=== PATIENT | female | born 1960 | race Caucasian/White ===

== ENCOUNTER → 2017-04-27 | Outpatient (CLI) | payer OTHER | LOC: BMCIMAGING 10:28 → EDSTATUS 10:37 → BMCIMAGING 10:40 | PROVIDERS: ATTEND Internal Medicine | DX: J98.4 Other disorders of lung (principal); R00.0 Tachycardia, unspecified; R49.0 Dysphonia ==

== ENCOUNTER → 2017-04-27 | Outpatient (CLI) | payer OTHER ==
[~2017-04-27] MED LIST: IOPAMIDOL (ISOVUE-300) 100 ML BTL ONE
== END ==
LOC: FIMAGING 13:13
PROVIDERS: ATTEND Internal Medicine
DX: R22.2 Localized swelling, mass and lump, trunk (principal); I31.3 Pericardial effusion (noninflammatory); J98.11 Atelectasis; D30.02 Benign neoplasm of left kidney; M43.12 Spondylolisthesis, cervical region; M47.892 Other spondylosis, cervical region; M48.02 Spinal stenosis, cervical region; M99.71 Connective tissue and disc stenosis of intervertebral foramina of cervical region; R00.0 Tachycardia, unspecified
CPT/HCPCS: Q9967

== ENCOUNTER 2017-05-06 09:55 | Day surgery (SDC) | payer OTHER ==
[2017-05-06] MEDS ORDERED: NALOXONE HCL 0.4 MG/ML INJ ONE (10:15)
[2017-05-06] MEDS ORDERED: FLUMAZENIL 0.5 MG/5 ML MDV IVP ONE (10:15)
[2017-05-06] MEDS ORDERED: MIDAZOLAM 2 MG/2 ML VIAL ONE (10:16)
[2017-05-06] MEDS ORDERED: fentaNYL 100 MCG/2 ML INJ ONE (10:16)
[2017-05-06] MEDS ORDERED: HEPARIN 10,000 UNIT/10 ML MDV IVP PRN (10:29)
[2017-05-06] MEDS ORDERED: GLUCAGON HCL 1 MG VIAL IVP PRN (10:29)
[2017-05-06] MEDS ORDERED: ALTEPLASE 2 MG VIAL IVP PRN (10:29)
[2017-05-06] MEDS ORDERED: FLUMAZENIL 0.5 MG/5 ML MDV IVP PRN (10:29)
[2017-05-06] MEDS ORDERED: PROTAMINE SULFATE 50 MG/5 ML VIAL IVP PRN (10:29)
[2017-05-06] MEDS ORDERED: fentaNYL 100 MCG/2 ML INJ IVP PRN (10:29)
[2017-05-06] MEDS ORDERED: MEPERIDINE 25 MG/ML SYR IVP PRN (10:29)
[2017-05-06] MEDS ORDERED: MIDAZOLAM 2 MG/2 ML VIAL IVP PRN (10:29)
[2017-05-06] MEDS ORDERED: NALOXONE HCL 0.4 MG/ML INJ IVP PRN (10:29)
[2017-05-06] MEDS ORDERED: NS 1,000 ML IV SCH (10:30)
[2017-05-06 10:43] VITALS: PULSE 87; TEMP 208
--- NOTE | 2017-05-06 11:06 | PDGENHP ---
History & Physical Chief Complaint: CHEST PRESSURE, LARYNGITIS, SWOLLEN LT FACE History of Present Illness: PATIENT HAD THE ABOVE PRESENTIG SYMPTOMS. HAS HAD WORK UP WITH ENT, GI. EVENTUALLY A CHEST X RAY FROM PRIMARY CARE PHSICIAN SHOWED A LARGE MEDIASTINAL MASS. CT CONFIRMED MASS. PATIENT IS HERE FOR CT GUIDED BIOPSY. Pertinent Past, Social, Family History: NO SMOKING HISTORY. 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 Relevant Physical Exam: NOT IN ANY DISTRESS. MILD LARYNGITIS. Cardiorespiratory Assessment: RRR, CTA
--- NOTE | 2017-05-06 11:11 | PDPROPOC ---
Sedation Plan of Care Sedation Plan of Care: vital signs stable, mental status noted, patient educated of risks, benefits, alternatives, patient can tolerate sedation ASA Classification: ASA 2 Planned drugs: fentanyl, midazolam Mallampati Score: Class 1 Mallampati Reference Image: Patient passed 3-3-2 rule?: Yes
[2017-05-06] MEDS ORDERED: ONDANSETRON 4 MG/2 ML VIAL ONE (11:16)
[2017-05-06] MEDS ORDERED: ONDANSETRON 4 MG/2 ML VIAL IVP PRN (12:05)
[2017-05-06] MEDS ORDERED: ACETAMINOPHEN 325 MG TAB PO PRN (12:05)
--- NOTE | 2017-05-06 12:09 | PDRADPN ---
Radiology Procedure Note Date of Procedure: 05/06/17 Radiologist: Leatha Go Anesthesia: IV Sedation (fentanyl and versed) Pre-op Diagnosis: mediastinal mass Post-op Diagnosis: same Indication: needs diagnosis Procedure: CT guided mass biopsy Finding(s): 6 cores obtained, sent in formalin and hanks. Inf/Abcess present in the surg proc area at time of surgery?: No EBL: Minimal Complications: none Specimen(s): cores
[2017-05-06 14:30] VITALS: RESP 16
[2017-05-06 14:37] VITALS: BP 127/85; O2SAT 98
[2017-05-09 14:23] LABS: FINAL DIAGNOSIS See Comments; MICROSCOPIC DESCRIPTION See Comments
== END 2017-05-06 13:20 | disposition home or self-care (01) ==
LOC: FIMAGING 09:55
PROVIDERS: ATTEND Radiology Diagnostic Radiology
PROC: 0WBC3ZX Excision of Mediastinum, Percutaneous Approach, Diagnostic (ICD-10-PCS; principal; 2017-05-06 12:14)
DX: C83.32 Diffuse large B-cell lymphoma, intrathoracic lymph nodes (principal); E03.9 Hypothyroidism, unspecified
CPT/HCPCS: 88184-90; 88185-91; J2250; J2310; J2405; J3010

== ENCOUNTER → 2017-05-13 | Outpatient (CLI) | payer OTHER | LOC: FIMAGING 14:13 | PROVIDERS: ATTEND Physician Assistant Surgical | DX: C85.90 Non-Hodgkin lymphoma, unspecified, unspecified site (principal) ==

== ENCOUNTER 2017-05-27 08:52 | Inpatient (IN) | payer OTHER ==
[2017-05-27] MEDS ORDERED: ACETAMINOPHEN 325 MG TAB PO PRN (09:35)
[2017-05-27] MEDS ORDERED: ZOLPIDEM TARTRATE 5 MG TAB PO PRN (09:35)
[2017-05-27] MEDS ORDERED: ONDANSETRON 4 MG/2 ML VIAL IVP PRN (09:35)
[2017-05-27] MEDS ORDERED: VANCOMYCIN HCL/NORMAL SALINE 250 ML IV ONE (10:30)
[2017-05-27] MEDS: traMADol 50 MG TAB PO PRN ×2 (10:40→20:42)
[2017-05-27] MEDS ORDERED: LIDOCAINE/PRILOCAINE 1 EACH CRTUBE TP SCH (11:15)
[2017-05-27 11:47] LABS: HEMATOCRIT 36.8 % (38.0-47.0); HEMOGLOBIN 13.4 g/dL (12.6-16.3); MEAN CELL HEMOGLOBIN 32.6 pg (27.9-34.1); MEAN CELL HEMOGLOBIN CONCENTR. 36.4 g/dL (32.4-36.7); MEAN CELL VOLUME 89.5 fL (81.5-99.8); RED BLOOD CELL COUNT 4.11 10^6/uL (4.18-5.33); RED CELL DISTRIBUTION WIDTH 11.8 % (11.5-15.2)
[2017-05-27 12:20] LABS: ALANINE AMINOTRANSFERASE 43 IU/L (9-52); ALBUMIN 3.8 g/dL (3.5-5.0); ALKALINE PHOSPHATASE 84 IU/L (38-126); ANION GAP 13 mEq/L (8-16); ASPARTATE AMINOTRANSFERASE 34 IU/L (14-46); BILIRUBIN,TOTAL 0.3 mg/dL (0.1-1.4); CALCIUM 9.2 mg/dL (8.5-10.4); CARBON DIOXIDE 26 mEq/l (22-31); CHLORIDE 103 mEq/L (97-110); CREATININE 0.6 mg/dL (0.6-1.0); GLOMERULAR FILTRATION RATE > 60; GLUCOSE 104 mg/dL (70-100); POTASSIUM 4.1 mEq/L (3.5-5.2); SODIUM 142 mEq/L (134-144); TOTAL PROTEIN 6.1 g/dL (6.3-8.2)
[2017-05-27] MEDS ORDERED: CYCLOBENZAPRINE 10 MG TAB PO PRN (15:12)
[2017-05-27] MEDS ORDERED: oxyCODONE IR 5 MG TAB PO PRN (15:13)
--- NOTE | 2017-05-27 18:01 | GHP ---
[f rep st] HISTORY AND PHYSICAL DATE OF ADMISSION: 05/27/2017 CHIEF COMPLAINT: Possible infected port. HISTORY OF PRESENT ILLNESS: The patient is a 56-year-old female who was recently diagnosed with non-Hodgkin's lymphoma that had a port placed approximately 3 weeks ago. She says that in the last 2 days she began to feel feverish, achy and had some back pain. She notes that her port site looked a little bit red and swollen so she called [facility]. She was directly admitted for evaluation and IV antibiotics. She denies any nausea, vomiting, or diarrhea. 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 Bauman. Postmenopausal, on HRT. PAST SURGICAL HISTORY: Right appendectomy, right upper chest port placement. SOCIAL HISTORY: She denies alcohol, tobacco, or drug use. She is and has 3 children. 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 FAMILY HISTORY: mom of pancreatic cancer at the age of 58. REVIEW OF SYSTEMS: 10-point review of systems was done and negative except as noted above. PHYSICAL EXAMINATION: VITAL SIGNS: Blood pressure is 110/76. Her heart rate is 112. She is 91% on room air and her temperature is 98.6. GENERAL: She is a very pleasant, thin female in no apparent distress, nontoxic. HEENT: Normocephalic, atraumatic. Extraocular movements are intact. Oropharynx has moist mucous membranes. No obvious lesions. NECK: Supple. No lymphadenopathy or thyromegaly appreciated. CARDIOVASCULAR: Tachy but regular rate with no murmur, rub, or gallop. LUNGS: Clear to auscultation bilaterally. ABDOMEN: Soft. Normoactive bowel sounds, nontender, nondistended. No hepatosplenomegaly appreciated. and BREAST exam were deferred. EXTREMITY: No cyanosis, clubbing, or edema. NEURO: Grossly intact. SKIN: She has a port just inferior to her right clavicle that has overlying erythema and swelling with an area of fluctuance centrally. She has a left peripheral IV that was recently placed. LABORATORY DATA: Sodium 142, potassium 4.1, chloride 103, CO2 of 26, BUN of 9, creatinine 0.6, glucose 104, calcium 9.2, total bilirubin is 0.3, AST of 34, ALT of 43, alkaline phosphatase of 84, total protein 6.1, albumin of 3.8, white blood cell count of 4.25, hemoglobin 13.4, hematocrit is 36.8, and platelet count is 155. Blood cultures are done and pending. No radiology studies are done. ASSESSMENT/PLAN: 1. Infected port site.Started on IV vanco. Blood cultures were done. General Surgery and Oncology have been asked to see the patient. For now, plan is to observe the site in hopes of salvaging this port site. However, if she is not responding to intravenous antibiotics, likely this will need to be removed and then another placed at some point. Care plan discussed with Dr. Martinez and Dr. Warren. 2. Non-Hodgkin lymphoma. She is currently undergoing chemotherapy. Scheduling of further chemotherapy sessions per Oncology. 3. Hypothyroidism. Home medication will be continued. 4. Deep venous thrombosis prophylaxis. Lovenox. 5. PCPs: Dr. Estela Melvin, Dr. Mau Bauman. 6. Full code. DISPOSITION: Likely greater than 2 midnights due to possible need for surgical intervention and need for IV antibiotics and evaluation. Greater than 30 minutes spent in reviewing chart, coordinating care. /[id number]/MODL MTDD
--- NOTE | 2017-05-27 19:15 | PDMN ---
Medical Necessity Medical necessity: C/M review: patient meets INPT criteria under [facility] M-515 Infection, thrombosis or other complication of intravenous device; Acute and persistent likely port infection requiring planned Oncology consult, General Surgery consult ongoing IV Vancomycin Q 12 hrs, comorbid recently diagnosed non- Hodgkin's lymphoma, port placement approximately 3 weeks ago, patient reports feeling feverish, redness, swelling at port site started two days prior to this admission, port has been used for IV chemo. MD anticipated > 2 MN LOS for ongoing med nec for eval and TX of above.
--- NOTE | 2017-05-27 20:36 | GCON ---
[f rep st] CONSULTATION MEDICAL ONCOLOGY FOLLOWUP CONSULTATION DATE OF CONSULTATION: 05/27/2017 REFERRING PHYSICIAN: Aminah Mccracken MD REASON FOR CONSULTATION: Ongoing management of port infection and primary mediastinal B-cell lymphom a. RECOMMENDATIONS: 1. Agree with IV antibiotics at this time as you are doing. 2. Check cultures when they are available. 3. I would try to treat her port infection in place at this time. If the infection fails to clear o r if it recurs or if she has positive blood cultures, I would recommend that the port be removed. 4. The patient's next chemotherapy is due on the June. That will be cycle #2 of R-EP [facility]. ASSESSMENT: This 56-year-old white female was recently diagnosed with a primary mediastinal B-cell l ymphoma. She initially had symptoms in the summer of 2016. She had swelling in her jaw and then a g lobus sensation in her throat when swallowing. Approximately 2 months ago, she developed hoarseness. Evaluation revealed the above-mentioned primary mediastinal B-cell lymphoma. The patient was start ed on treatment with capital R-EPOCH chemotherapy on the May. Treatment is with cu rative intent. She tolerated her first cycle fairly well. The patient called me last evening with complaints of some minor redness but no fever in her port. S he was seen in the office this morning for further evaluation. Of note, her total white count yester day was 1.36. The patient did receive Neulasta. Her granulocytes yesterday were 190. Today, her to jose white blood cell count on admission to the hospital was normal at 4.25. Her platelets were 155,0 00 and her hemoglobin was 13.4. She was not febrile. Because of the erythema of in and around her p ort, she was admitted for further evaluation and treatment. Her blood cultures are currently pending . We will attempt to treat her port in place without removal if possible. However, if she has positive blood cultures or fails to clear the infection, the port will need to be removed. She has been eval uated by Dr. Velazquez, who is following along with this. Her next chemotherapy is due on the Jun. HISTORY OF PRESENT ILLNESS: Please see assessment. PAST MEDICAL HISTORY: Remarkable for incidentally noted carcinoid tumor after appendectomy in approx imately 2000. She has had nonmelanoma skin cancer. She has had hypothyroidism. FAMILY HISTORY: Remarkable for her mother dying of pancreatic cancer at age 58. SOCIAL HISTORY: She does not smoke cigarettes. She drinks alcohol rarely. 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 REVIEW OF SYSTEMS: Remarkable for tenderness associated with her port in her right chest. She, at t his time, has not as of yet had hair loss. She has no nausea, vomiting, or mouth sores. She reports no nausea or vomiting. She reports no change in her bowel habits. She has had no lower extremity e justine. PHYSICAL EXAMINATION: GENERAL: Shows a well-developed, articulate woman sitting up in bed in no acu te distress. HEENT: Exam is unremarkable. NECK: Shows some minor venous distention bilaterally. LUNGS: Clear to auscultation anteriorly and posteriorly. CARDIAC: Am shows a regular tachycardic r hythm. ABDOMEN: Exam shows active bowel sounds. No hepatosplenomegaly. No tenderness. LOWER EXTR EMITIES: Show no edema. CHEST: Her right anterior chest wall port shows some erythema and ecchymos is but no drainage and no significant tenderness. There is no tenderness along the track of the cath eter. Thank you very much for allowing us to participate in this pleasant woman's ongoing oncologic care. We will look forward to assisting with her management. /[id number]/MODL
[2017-05-27] MEDS: ACYCLOVIR 400 MG TAB PO SCH (20:42)
[2017-05-27] MEDS: ALLOPURINOL 300 MG TAB PO SCH (20:42)
--- NOTE | 2017-05-27 21:33 | SOAPPROG ---
SOAP Progress Note Assessment/Plan: Assessment: s/p port presented with malaise and fever Slight erythema around port Discussed with Dr. Warren. Will monitor Plan: 05/27/17 21:33 Objective: Vital Signs Temp Pulse Resp BP Pulse Ox 37.0 C 112 H 16 110/76 91 L 05/27/17 15:27 05/27/17 15:27 05/27/17 15:27 05/27/17 15:27 05/27/17 15:27 Laboratory Results 05/27/17 11:40 05/27/17 11:40 05/26/17 05/27/17 05/28/17 05:59 05:59 05:59 Intake Total 2250 Balance 2250 ICD10 Worksheet Patient Problems: Problems Problem Status Onset Mediastinal mass Acute
[2017-05-27] MEDS: VANCOMYCIN HCL/NORMAL SALINE 250 ML IV SCH (23:00)
[2017-05-28 04:06] LABS: ABSOLUTE NRBC COUNT 0.18 10^3/uL (0-0.01); ADD DIFF? YES; ATYPICAL LYMPHOCYTE FLAG 0 (0-99); FRAGMENT RBC FLAG 0 (0-99); HEMATOCRIT 35.6 % (38.0-47.0); HEMOGLOBIN 12.5 g/dL (12.6-16.3); LIPEMIA HEMOLYSIS FLAG 90 (0-99); MEAN CELL HEMOGLOBIN 31.3 pg (27.9-34.1); MEAN CELL HEMOGLOBIN CONCENTR. 35.1 g/dL (32.4-36.7); MEAN CELL VOLUME 89.2 fL (81.5-99.8); MEAN PLATELET VOLUME 9.8 fL (8.7-11.7); PLATELET CLUMPS FLAG 0 (0-99); PLATELET COUNT 159 10^3/uL (150-400); RED BLOOD CELL COUNT 3.99 10^6/uL (4.18-5.33); RED CELL DISTRIBUTION WIDTH 11.9 % (11.5-15.2)
[2017-05-28 04:11] LABS: ADD MORPH? NO; ADD SCAN? NO; LEFT SHIFT FLG 300 (0-99); NRBC-AUTO% 1.3 % (0.0-0.2)
[2017-05-28 04:17] LABS: ANION GAP 11 mEq/L (8-16); CARBON DIOXIDE 26 mEq/l (22-31); CHLORIDE 99 mEq/L (97-110); CREATININE 0.7 mg/dL (0.6-1.0); GLOMERULAR FILTRATION RATE > 60; GLUCOSE 84 mg/dL (70-100); POTASSIUM 4.7 mEq/L (3.5-5.2); SODIUM 136 mEq/L (134-144)
[2017-05-28 04:52] LABS: MICROCYTES 2+; PLATELET ESTIMATE ADEQUATE (ADEQ); POLYCHROMASIA 1+
[2017-05-28] MEDS: LEVOTHYROXINE 88 MCG TAB PO SCH (06:02)
[2017-05-28 07:51] VITALS: RESP 16
[2017-05-28] MEDS ORDERED: ENOXAPARIN 40 MG/0.4 ML SYR SC SCH (09:00)
--- NOTE | 2017-05-28 09:04 | SOAPPROG ---
SOAP Progress Note Assessment/Plan: Assessment: s/p port erythema stable around port. Getting abx Will remove if worsens Plan: 05/27/17 21:33 05/28/17 09:04 Objective: Vital Signs Temp Pulse Resp BP Pulse Ox 36.6 C 97 16 123/83 H 93 05/28/17 07:49 05/28/17 07:49 05/28/17 07:49 05/28/17 07:49 05/28/17 07:49 Laboratory Results 05/28/17 03:20 05/28/17 03:20 05/27/17 05/28/17 05/29/17 05:59 05:59 05:59 Intake Total 2600 Balance 2600 ICD10 Worksheet Patient Problems: Problems Problem Status Onset Mediastinal mass Acute
[2017-05-28] MEDS: CHOLECALCIFEROL VIT D3 1,000 UNITS TAB PO SCH (09:39)
[2017-05-28] MEDS: ACYCLOVIR 400 MG TAB PO SCH ×2 (09:39→21:04)
[2017-05-28] MEDS: VANCOMYCIN HCL/NORMAL SALINE 250 ML IV SCH ×2 (11:07→22:38)
--- NOTE | 2017-05-28 11:33 | SOAPPROG ---
SOAP Progress Note Assessment/Plan: Assessment: 1. Primary mediastinal B cell lymphoma 2. Port infection 3. Leukocytosis due to Neulasta Plan: - OK to change to PO abx from my perspective, as infection appears to be improving - due in clinic next week for labs - next cycle of chemo (R-DA-EPOCH) due 06/07/17. 05/28/17 11:32 Subjective: feels well today. Objective: exam: Port a little red but by report improved exam otherwise normal Vital Signs Temp Pulse Resp BP Pulse Ox 36.6 C 97 16 123/83 H 93 05/28/17 07:49 05/28/17 07:49 05/28/17 07:49 05/28/17 07:49 05/28/17 07:49 Laboratory Results 05/28/17 03:20 05/28/17 03:20 05/27/17 05/28/17 05/29/17 05:59 05:59 05:59 Intake Total 2600 Balance 2600 ICD10 Worksheet Patient Problems: Problems Problem Status Onset Mediastinal mass Acute
[2017-05-28] MEDS: traMADol 50 MG TAB PO PRN (15:31)
--- NOTE | 2017-05-28 16:35 | ASMTCMCOM ---
CM Note CM Note Notes: Pt admitted with neutropenia. Dx Non-Hodgkins lymphoma. D/c needs still unknown - hoping to transition pt to po ABX. CM will follow for any d/c needs. Date Signed: 05/28/2017 04:35 PM Electronically Signed By:JESUS ALBERTO Kay
--- NOTE | 2017-05-28 16:55 | HOSPPROG ---
Hospitalist Progress Note Assessment/Plan: 56 yo F with PMH of fairly recently diagnosed NHL admitted with infected port # infected port: has been treated with IV vanco with apparent improvement in erythema and pain, if continues to improve overnight and cultures remain negative, likely ok to dc on oral abx with plan to f/u with surgery/onc # NHL: will f/u with oncology for ultimate treatment plan # sepsis: patient meeting SIRS criteria with elevated WBC (climbing overnight) and tachycardia with source of infection as above, HD stable without any e/o end organ dysfunction etc. Will continue to trend wbc and monitor culture data # IP status, will need > 48 hours stay for eval/mgmt of above Patient new to my care. Old records reviewed and summarized as above. Care plan reviewed with oncology. Subjective: no significant overnight events, patient feeling well, she feels hopeful for discharge in the am, denies f/c Objective: Vital Signs Temp Pulse Resp BP Pulse Ox 36.5 C 118 H 16 117/84 H 92 05/28/17 15:23 05/28/17 15:23 05/28/17 15:23 05/28/17 15:23 05/28/17 15:23 Laboratory Results 05/28/17 03:20 05/28/17 03:20 05/27/17 05/28/17 05/29/17 05:59 05:59 05:59 Intake Total 2600 Balance 2600 awake alert nad anicteric op clear rrr no mrg cta b, erythema surrounding port site soft nt nd no cce warm dry well perfused oriented appropratie ICD10 Worksheet Patient Problems: Problems Problem Status Onset Mediastinal mass Acute
[2017-05-28] MEDS: ALLOPURINOL 300 MG TAB PO SCH (21:04)
[2017-05-29 04:48] LABS: HEMATOCRIT 34.4 % (38.0-47.0); HEMOGLOBIN 12.1 g/dL (12.6-16.3); MEAN CELL HEMOGLOBIN 31.7 pg (27.9-34.1); MEAN CELL HEMOGLOBIN CONCENTR. 35.2 g/dL (32.4-36.7); MEAN CELL VOLUME 90.1 fL (81.5-99.8); RED BLOOD CELL COUNT 3.82 10^6/uL (4.18-5.33); RED CELL DISTRIBUTION WIDTH 12.3 % (11.5-15.2)
[2017-05-29] MEDS: LEVOTHYROXINE 88 MCG TAB PO SCH (06:30)
[2017-05-29 08:51] VITALS: BP 120/85; PULSE 112; TEMP 98.1; O2SAT 92
[2017-05-29] MEDS: traMADol 50 MG TAB PO PRN (08:52)
[2017-05-29] MEDS: CHOLECALCIFEROL VIT D3 1,000 UNITS TAB PO SCH (08:52)
[2017-05-29] MEDS: ACYCLOVIR 400 MG TAB PO SCH (08:52)
--- NOTE | 2017-05-29 09:33 | SOAPPROG ---
SOAP Progress Note Assessment/Plan: Assessment/Plan: 56-year-old female with port infection No fevers, no chills, white count is a little bit up today. Blood cultures negative for growth at 36 hours. Port site has some erythema, no fluctuance which appears stable to maybe a little bit more so than yesterday. From surgical standpoint, still okay with discharge today. Will defer to Medicine and Oncology. If they would like port removed, will be glad to do so. 05/29/17 09:32 Subjective: Patient feels a little bit more tired and weak today Objective: Vital Signs Temp Pulse Resp BP Pulse Ox 36.7 C 112 H 16 120/85 H 92 05/29/17 08:51 05/29/17 08:51 05/29/17 08:51 05/29/17 08:51 05/29/17 08:51 Laboratory Results 05/29/17 04:21 05/28/17 03:20 05/28/17 05/29/17 05/30/17 05:59 05:59 05:59 Intake Total 2600 1150 Balance 2600 1150 ICD10 Worksheet Patient Problems: Problems Problem Status Onset Mediastinal mass Acute
--- NOTE | 2017-05-29 09:51 | PDDCSUM ---
Discharge Summary Discharge Summary: Dates of service 05/27-05/29/17 Consultations: oncology, general surgery Procedures performed: none Hospital course by problem: 56 yo F with PMH of fairly recently diagnosed NHL admitted with infected port # infected port: has been treated with IV vanco with apparent improvement in erythema and pain, surgery and oncology following, hopeful that this infection will clear with abx but possible port will need to be removed. Will dc home on doxy/keflex and she has f/u scheduled in the next couple days # NHL: will f/u with oncology for ultimate treatment plan # sepsis: patient meeting SIRS criteria with elevated WBC (climbing overnight) and tachycardia with source of infection as above, HD stable without any e/o end organ dysfunction etc. Improved dc home f/u with onc/surgery/pcp as scheduled > 35 min spent in dc more than half in coordination of care
[2017-05-29] MEDS ORDERED: DOXYCYCLINE HYCLATE 100 MG CAP/TAB PO SCH (10:00)
[2017-05-29] MEDS ORDERED: CEPHALEXIN 500 MG CAP PO SCH (10:00)
--- NOTE | 2017-05-29 12:11 | ASDISCHSUM ---
Discharge Information Plan Status:Home with No Needs Medically Cleared to Leave:05/28/2017 Discharge Date:05/29/2017 11:31 AM CM D/C Disposition: ADT D/C Disposition:Home, Routine, Self-Care Projected Discharge Date:05/29/2017 11:31 AM Transportation at D/C: Discharge Delay Reason: Follow-Up Date:05/29/2017 11:31 AM Discharge Slot: Final Diagnosis: Placement Information Patient Contact Information Contact Name:CINTIA Relationship: [address] Work Phone: City:[facility] Phone: [facility]/Zip Code:[place] [address] Email: Financial Information Financial Class:HMO and PPO Plans Primary Plan Desc:[employer] PPO Primary Plan Number:[id number] Secondary Plan Desc: Secondary Plan Number: Assessment Information [facility] CM Progress Note CM Note CM Note Notes: Pt admitted with neutropenia. Dx Non-Hodgkins lymphoma. D/c needs still unknown - hoping to transition pt to po ABX. CM will follow for any d/c needs. Date Signed: 05/28/2017 04:35 PM Electronically Signed By:JESUS ALBERTO Kay Intervention Information
--- NOTE | 2017-06-01 13:03 | GHP ---
[f rep st] PREOP HISTORY AND PHYSICAL DATE OF ADMISSION: 06/03/2017 CHIEF COMPLAINT: Lymphoma. HISTORY OF PRESENT ILLNESS: Trent Sesay is a 56-year-old woman who was recently diagnosed with non-Hodgkin's lymphoma. She had a port placed on 2016. She was admitted last week with neutropenic fever. She received one dose of chemotherapy. She was then admitted last week with neutropenic fever. She had minimal erythema around her port site, but no other symptoms of infection. She was treated with IV antibiotics and discharged home with oral doxycycline and Keflex. On 05/29/2017, she developed significantly worse skin changes including redness, induration, pustules, as well as feeling acutely ill , including nausea, fatigue and malaise. She has not had a fever. She presented to our office on 05/31/2017, and had her right chest PowerPort removed in the office and packed. A wound culture was obtained which is still pending. She is scheduled to start her next round of chemotherapy on 06/07/2017 , and needs a new port placed prior to that date. PAST MEDICAL HISTORY: New diagnosis non-Hodgkin's lymphoma, carcinoid tumor of the appendix, nonmelanoma skin cancers, hypothyroidism. PAST SURGICAL HISTORY: Right chest port placement and subsequent removal, appendectomy. 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 She denies alcohol , tobacco, or drug use. She is with 3 children. FAMILY HISTORY: Mother of pancreatic cancer at 58. ALLERGIES: No known drug allergies. REVIEW OF SYSTEMS: A 10-point review of systems negative aside from HPI. PHYSICAL EXAMINATION: GENERAL: A pleasant, well-developed, well-nourished woman in no acute distress. HEENT: Normocephalic, atraumatic. No hearing deficits. Pupils equal and round. No scleral icterus. Mucous membranes moist. NECK: Trachea in the midline. RESPIRATORY: Clear to auscultation bilaterally. No increased work of breathing. CARDIOVASCULAR: No peripheral edema. Heart regular rate and rhythm. CHEST: The right port removal site with improving erythema. No gross purulence. PSYCHIATRIC: Mood and affect normal. NEUROLOGIC: Grossly intact. IMPRESSION AND PLAN: 56-year-old woman with non-Hodgkin's lymphoma who needs a port prior to chemotherapy starting on 06/07/2017. We discussed risks of port placement including, but not limited to, heart attack, stroke, blood clots or . We discussed risk of infection, bleeding, pneumothorax or need for device removal. She will continue her oral antibiotics as directed and wound care for the right chest port removal site. She agrees the above impression and plan, and she was additionally seen by Dr. Rachel Martinez who agrees with the above impression and plan. /[id number]/MODL MTDD
== END 2017-05-29 11:31 | disposition home or self-care (01) | DRG 314 ==
LOC: F1N 09:25 → UNDOADMIN 09:28
PROVIDERS: ADMIT Family Medicine; ATTEND Internal Medicine
DX: T80.211A Bloodstream infection due to central venous catheter, initial encounter (principal); A41.9 Sepsis, unspecified organism; C85.12 Unspecified B-cell lymphoma, intrathoracic lymph nodes; Z85.030 Personal history of malignant carcinoid tumor of large intestine; E03.9 Hypothyroidism, unspecified
CPT/HCPCS: J3370

== ENCOUNTER 2017-06-02 14:21 | Inpatient (IN) | payer OTHER ==
[2017-06-02] MEDS ORDERED: VANCOMYCIN 1 GM in D5W 250 ML IV SCH (17:00)
[2017-06-02] MEDS ORDERED: ONDANSETRON 4 MG/2 ML VIAL IVP PRN (17:07)
[2017-06-02] MEDS ORDERED: ONDANSETRON DISINTEGRATING 4 MG TAB PO PRN (17:07)
[2017-06-02] MEDS ORDERED: oxyCODONE IR 5 MG TAB PO PRN (17:07)
--- NOTE | 2017-06-02 17:14 | SOAPPROG ---
SOAP Progress Note Assessment/Plan: Assessment: will dictate consult later. Added zosyn Continue Vanc BC pending erythema on chest - no discrete abscess. Changed packing If not improving with abx then ct chest Plan: 06/02/17 17:13 Objective: Vital Signs Temp Pulse Resp BP Pulse Ox 37.2 C 124 H 16 116/77 92 06/02/17 16:39 06/02/17 15:07 06/02/17 15:07 06/02/17 15:07 06/02/17 15:07 ICD10 Worksheet Patient Problems: Problems Problem Status Onset Mediastinal mass Acute
[2017-06-02] MEDS ORDERED: LIDOCAINE/PRILOCAINE 1 EACH CRTUBE TP SCH (17:15)
[2017-06-02] MEDS: VANCOMYCIN HCL/NORMAL SALINE 250 ML IV SCH (17:28)
[2017-06-02] MEDS: traMADol 50 MG TAB PO PRN (17:37)
--- NOTE | 2017-06-02 19:09 | GHP ---
[f rep st] HISTORY AND PHYSICAL DATE OF ADMISSION: 06/02/2017 CHIEF COMPLAINT: Cellulitis from previous port. HISTORY OF PRESENT ILLNESS: This is a 56-year-old female with a history of non-Hodgkin's lymphoma. This was diagnosed in April. She did have a large mediastinal mass and chronic tachycardia from t hat. She was admitted to the hospital May 27 to May 29 with an infection that appeared to be related to a port on her right chest. She was treated with IV vancomycin and seemed to improve. She then went home on Keflex and doxycycline, but the patient says that her cellulitis worsened at th at time. Her port was removed a couple days ago. However, the cellulitis has increasingly worsened. She does have fever and chills and malaise. No drainage. REVIEW OF SYSTEMS: A 10-point review of systems was obtained. Other than stated was negative. PAST MEDICAL HISTORY: 1. Non-Hodgkin's lymphoma. 2. History of carcinoid tumor noted after appendectomy. 3. History of nonmelanoma skin cancer. SOCIAL HISTORY: No smoking or alcohol. 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 FAMILY HISTORY: Mom of pancreatic cancer at age 58. PHYSICAL EXAM: VITAL SIGNS: Afebrile. Blood pressure is 116/77, heart rate 124, oxygen saturation is 92% on room air. GENERAL: The patient is well developed, in no apparent distress. HEENT: Nonic teric sclerae. Extraocular muscles intact. Moist mucous membranes. No thrush. NECK: Supple. No t hyromegaly. LUNGS: Good effort. Clear to auscultation bilaterally. CARDIOVASCULAR: Tachycardic. No murmurs, rubs, or gallops. CHEST WALL: Significant erythema in a dressed area where the port wa s removed, which Surgery has inspected. ABDOMEN: Positive bowel sounds. Soft, nontender, nondisten ded. No hepatosplenomegaly. EXTREMITIES: No clubbing, cyanosis, or edema. SKIN: Without rash, dr cecilia intact. NEUROLOGIC: Alert and oriented x3. Moving all 4 extremities equally. PSYCHIATRIC: Helen l affect. LABS: White blood cell count is 33,000, but she did receive Neulasta. Platelets are 213. Chemistri es normal. ASSESSMENT: This is a 56-year-old female presenting with right-sided cellulitis after port removal. PLAN: 1. Left-sided cellulitis related to port. I have started vancomycin. Surgery has talked to Infecti ous Disease, and has recommended Zosyn. I believe they got blood cultures. Will see how antibiotics work, and Infectious Disease will consult tomorrow. 2. Non-Hodgkin's lymphoma. We will discuss with Oncology tomorrow. 3. Hypothyroidism. /[id number]/MODL
[2017-06-02] MEDS: PIPERACILLIN/TAZO 3.375 GM/DEX 50 ML IV SCH (19:17)
[2017-06-02] MEDS ORDERED: ALLOPURINOL 300 MG TAB PO SCH (21:00)
[2017-06-02] MEDS: ACYCLOVIR 400 MG TAB PO SCH (21:08)
[2017-06-03] MEDS: PIPERACILLIN/TAZO 3.375 GM/DEX 50 ML IV SCH ×5 (01:00→23:42)
[2017-06-03] MEDS: LR 1,000 ML IV SCH ×2 (03:09→21:20)
[2017-06-03 05:05] LABS: PLATELET COUNT 232 10^3/uL (150-400)
[2017-06-03] MEDS: traMADol 50 MG TAB PO PRN ×2 (05:24→16:49)
[2017-06-03] MEDS: VANCOMYCIN HCL/NORMAL SALINE 250 ML IV SCH ×2 (05:26→16:49)
[2017-06-03] MEDS: LEVOTHYROXINE 88 MCG TAB PO SCH (05:27)
--- NOTE | 2017-06-03 07:59 | PDMN ---
Medical Necessity Medical necessity: M70 cellulitis - failed outpt tx in high risk pt with non- hodkins lymphoma
[2017-06-03] MEDS ORDERED: ENOXAPARIN 40 MG/0.4 ML SYR SC SCH (09:00)
[2017-06-03] MEDS: ACYCLOVIR 400 MG TAB PO SCH ×2 (10:07→21:16)
--- NOTE | 2017-06-03 13:28 | HOSPPROG ---
Hospitalist Progress Note Assessment/Plan: 56 yo female with hx of B Cell Lymphoma and recent chest port infection with subsequent chest port removal admitted with chest wall cellulitis and likely Sepsis which was present on admission. Unfortunately her IVF were not continued on the floor and she is hypotensive with tachycardia this morning. She is also feeling SOB and has difficulty with taking a deep breath. Her resp rate is adequate. She has not had a cough -Sepsis based on SIRS criteria (increased HR, Leukocytosis, chest wall cellulitis) + slight hypotension -Chest Wall Cellulitis -Hypoxemia, 2 LO2, baseline is none. -B-Cell Lymphoma -Generalized Weakness and Deconditioning Plan: -IVF were restarted -Additional IVF once this order is complete -Vancomycin and Zosyn -If she does not respond to the fluid challenge and/or BP drops further, or tachycardia worsens, she may need pressors and transfer to the ICU -Stat serum lactate and PC -check CXR -F/u BCx's -ID and Surgery following, appreciate recss -She has requested to stop Lovenox and has opted for SCD's and early ambulation total cct is 35 minutes Subjective: hypotensive. Baseline is normatensive. Feels weak. Tachycardia. no urine output last night. Had some this morning. Objective: Vital Signs Temp Pulse Resp BP Pulse Ox 37.1 C 121 H 18 116/72 97 06/03/17 11:34 06/03/17 11:34 06/03/17 11:34 06/03/17 11:34 06/03/17 11:34 Laboratory Results 06/03/17 04:02 06/03/17 04:02 06/02/17 06/03/17 06/04/17 05:59 05:59 05:59 Intake Total 2150 Balance 215 - Physical Exam Constitutional: no apparent distress Eyes: PERRL, EOMI Ears, Nose, Mouth, Throat: moist mucous membranes, hearing normal Cardiovascular: tachycardia, No edema Respiratory: no respiratory distress, clear to auscultation, other Gastrointestinal: normoactive bowel sounds, soft, non-tender abdomen Skin: warm Neurologic: AAOx3 Psychiatric: interacting appropriately, not anxious, not encephalopathic Lymph, Heme, Immunologic: No petechiae ICD10 Worksheet Patient Problems: Problems Problem Status Onset Mediastinal mass Acute
[2017-06-03] MEDS ORDERED: LR 1,000 ML IV SCH (13:30)
--- NOTE | 2017-06-03 13:58 | GHP ---
[f rep st] HISTORY AND PHYSICAL DATE OF ADMISSION: 06/02/2017 HISTORY OF PRESENT ILLNESS: The patient is a pleasant 56-year-old female with a recent diagnosis of stage IIA primary mediastinal B-cell lymphoma. She is being followed by my partner, Dr. Mau wei. She received her first cycle of Rituxan with dose-adjusted EPOCH on May 16, 2017. Shortly after receiving her first cycle of treatment, she noted some induration at her MediPort site. This became progressive. She was admitted to [facility] from May 27 through with a suspicion of infected MediPort. This was treated initially with conservative manag ement and IV antibiotics. She did improve. She was sent home on a combination of Keflex and doxycyc line. She developed an overlying cellulitis that worsened. Her MediPort was removed in the outpatie nt setting on May 31. The patient notes worsening right chest wall cellulitis over the last 2 days. She had a fever, chill s, malaise, and tachycardia. She was admitted from the office for IV antibiotics. She has been star tonya empirically on Zosyn and vancomycin. She feels somewhat better. She is being continued on proph ylactic acyclovir. PAST MEDICAL HISTORY: 1. Recent diagnosis of mediastinal diffuse large B-cell lymphoma, as outlined above. 2. History of incidental finding of carcinoid tumor noted after appendectomy. 3. History of nonmelanoma superficial skin cancer. FAMILY MEDICAL HISTORY: Notable for her mother dying of pancreatic cancer at the age of 58. SOCIAL HISTORY: The patient is to [place]. She lives locally. 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 She has 2 children, ages 14 and 18. She is a nonsmoker. She dri nks alcohol rarely. REVIEW OF SYSTEMS: As outlined above. Additionally, patient denies headache or visual changes. Den ies chest pain, cough, or exertional dyspnea. Denies flank pain. Denies abdominal pain, nausea, vom iting, or diarrhea. Denies extremity pain or swelling. Denies recurrent facial swelling. She does have chronic mild hoarseness related to her primary diagnosis. PHYSICAL EXAM: GENERAL: The patient is in no acute distress. EYES: Pupils equal. Sclerae nonicte shaquille. HEART: Tachycardic, without murmur. LUNGS: Clear bilaterally. The patient has a fairly exte nsive area of cellulitis surrounding her MediPort site on the right chest wall. The area is mildly t zia. There is no associated right upper extremity swelling. ABDOMEN: Soft, nontender, nondistend ed. NEUROLOGIC: Patient alert, oriented, and appropriate. LABORATORY DATA: CBC from today, white count 27,700, hemoglobin 11.1, hematocrit 30.4, platelet coun t 232,000. Absolute neutrophil count is 19,900. Sodium 132, potassium 3.6, chloride 93, bicarb 27, BUN 8, creatinine 0.7, alkaline phosphatase 135, ALT 34, AST 23. Total bilirubin is 0.7. IMPRESSION: 1. Primary mediastinal B-cell lymphoma, status post first cycle of Rituxan with dose adjusted EPOCH, May 16, 2017. 2. Hyperleukocytosis secondary to pegfilgrastim administration. 3. Right chest wall cellulitis. 4. MediPort infection, status post MediPort removal, May 31, 2017. The patient is a pleasant 56-year-old female who was admitted to the hospital with right chest wall c ellulitis and a recent history of an infected right MediPort, which has been removed. She is non-junior tropenic. ID consultation has been requested. For now, she will continue on empiric antibiotic adarsh tment with vancomycin and Zosyn. Blood cultures have been drawn and will be monitored. Her antibiot ic coverage will be adjusted if a pathogen is identified. She is due for her second cycle of Rituxan and dose-adjusted EPOCH on June 07. This may need to be delayed in light of her active infection. She will eventually need a PICC line placed prior to cycle 2. However, I would hold off on this in l ight of her infection currently. She will continue on prophylactic acyclovir. She would prefer not to receive prophylactic dose Lovenox, and given that she is fully ambulatory, I think this is reasonable. It has already been discontinued. I do note that she was started on allopurinol. She does not need to be on this currently, and I will discontinue the medication. Our service will continue to follow her and will make a final decision regarding the timing of cycle 2 over the next several days depending on her rate of improvement. Her questions were answered today. Total time for today's visit was approximately 45 minutes, of which greater than 50% was spent in cou nseling and care coordination. /[id number]/MODL
--- NOTE | 2017-06-03 14:10 | SOAPPROG ---
SOAP Progress Note Assessment/Plan: Assessment: Chest wall cellulitis improved from last night Continue Vanc and Zosyn. ID will see today (discussed with Dr. Thomas last evening) I will change packing from port site removal tomorrow Will follow Plan: 06/02/17 17:13 06/03/17 14:09 Objective: Vital Signs Temp Pulse Resp BP Pulse Ox 37.1 C 121 H 18 116/72 97 06/03/17 11:34 06/03/17 11:34 06/03/17 11:34 06/03/17 11:34 06/03/17 11:34 Laboratory Results 06/03/17 04:02 06/03/17 04:02 06/02/17 06/03/17 06/04/17 05:59 05:59 05:59 Intake Total 2150 240 Output Total 700 Balance 2150 -460 ICD10 Worksheet Patient Problems: Problems Problem Status Onset Mediastinal mass Acute
--- NOTE | 2017-06-03 14:23 | GCON ---
[f rep st] CONSULTATION INPATIENT INFECTIOUS DISEASE CONSULTATION. REFERRING PHYSICIAN: Han Verma MD REASON FOR REFERRAL: Cellulitis surrounding former port placement. HISTORY OF PRESENT ILLNESS: Patient is a 56-year-old female with an underlying diagnosis of non-Hodg kin's lymphoma, which manifested with a mediastinal mass, diagnosed this recent April. The patien t had her 1st chemotherapy in early May with a follow of Neulasta. The patient presented initia lly on May 27 and was hospitalized through May 29 with what appeared to be a port-relat ed infection in the right chest. She was given IV vancomycin during that visit and clinically improv ed, and then was discharged on oral doxycycline and Keflex. The patient noted that since her dischar ge on , the area around her right chest got progressively more red and increased drainage. The p atient also notes fevers with chills and malaise. PAST MEDICAL HISTORY: 1. Recent diagnosis of non-Hodgkin's lymphoma. 2. History of an incidental carcinoid tumor noted following appendectomy for appendicitis. 3. Skin cancer. PAST SURGICAL HISTORY: 1. Status post port placement. 2. Status post appendectomy. 3. Status post skin lesion removal. ANTIBIOTICS: 1. Vancomycin 1 g IV q.12 hours. 2. Zosyn 3.375 g IV q.6 hours. ALLERGIES: The patient has no known medical allergies. SOCIAL HISTORY: Patient denies any tobacco or alcohol use. 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 FAMILY HISTORY: Positive for pancreatic cancer in her mother. REVIEW OF SYSTEMS: Other than that detailed above in the History of Present Illness, a comprehensive 10-system review is negative. PHYSICAL EXAMINATION: VITAL SIGNS: Temperature maximum is 37.7, temperature current is 37.1; heart rate is 121; respiratory rate is 18; blood pressure is 116/72. GENERAL: The patient is a well-forme d, well-nourished, middle-aged female in no acute distress. She is not toxic in appearance. She is alert and oriented x3. She is pleasant in demeanor. HEENT: Normocephalic for age. Atraumatic. No scleral icterus. No oral lesion. No drainage from the nares. Eyes: Lids and conjunctivae are wit hin normal limits. Pupils are equal and round bilaterally. NECK: Supple. No meningismus. LUNGS: Clear to auscultation. Good effort. HEART: Tachycardic but regular. SKIN: Warm and dry to the t ouch. Patient has a surgical wound in the right upper chest which has dehisced. There is an indwell ing bit of wicking tape in the wound. There is a moderate amount of erythema and induration in the s urrounding tissues that stretches up close to the clavicle in the midline and over to the sternal bor lesley medially. Mildly warm, mildly tender to palpation. MUSCULOSKELETAL: No muscle belly tenderness is noted. No joint line effusion or arthritis seen. NEURO: Cranial nerves 2-12 seem to be intact. Peripheral sensation is intact in extremities. LABORATORY DATA: The patient has a CBC dated 06/03/2017, white blood cell count is 27.7, hemoglobin 11.1, hematocrit is 30.4, platelet count is 232, differential shows 17% band forms. Serum chemistrie s on 06/03/2017, show sodium 132, potassium 3.6, chloride of 93, bicarbonate 27, BUN of 8, creatinine of 0.7. AST 23, ALT of 34, procalcitonin level 0.51. MICROBIOLOGIC DATA: Patient has blood cultures dated 06/02/2017, which are pending. Blood cultures dated 05/27/2017, are negative. Wound culture of the port site from 05/31/2017, is also negative. RADIOLOGIC DATA: Patient has a chest x-ray dated 06/03/2017, which shows possible fluid overload and a possible persistent left lower lobe consolidation with a possible small effusion. ASSESSMENT: Right upper chest port site postoperative infection/cellulitis. Unclear pathogen. Lillie ent did fail doxycycline and Keflex as an outpatient earlier this week. This could be because these antibiotics were not encompassing the cause or could be because Neulasta was increasing her white blo od cell count, causing more inflammatory response to the area. Regardless, patient is now on vancomy namita and Zosyn. She feels much better qualitatively. I think that this is a good indicator that this antibiotic regimen is covering the process. At this point, we will continue this regimen and evalua te clinically on a daily basis. I reviewed the chest x-ray read that was questioning left lower lobe pneumonia. I do not see a signi ficant infiltrate that would correlate with any clinical signs. PLAN: 1. Continue both vancomycin and Zosyn. 2. Follow appearance of the right operative site. /[id number]/MODL
--- NOTE | 2017-06-03 15:13 | ASMTCMCOM ---
CM Note CM Note Notes: Pt admitted with probably port infection. Pt curretnly in treatment for B-cell lymphoma. Currently on IV vanco and zosyn. Pt may have port removed and PICC placed. If so, will need PICC care. C/M will follow for IV ABX and PICC care needs. Date Signed: 06/03/2017 03:12 PM Electronically Signed By:Jenny Lucas LCSW
[2017-06-03] MEDS: ACETAMINOPHEN 325 MG TAB PO PRN (17:33)
[2017-06-04] MEDS: ACETAMINOPHEN 325 MG TAB PO PRN (01:59)
[2017-06-04 04:33] LABS: PLATELET COUNT 278 10^3/uL (150-400)
[2017-06-04] MEDS: PIPERACILLIN/TAZO 3.375 GM/DEX 50 ML IV SCH ×3 (05:04→17:21)
[2017-06-04] MEDS: VANCOMYCIN HCL/NORMAL SALINE 250 ML IV SCH (05:35)
[2017-06-04] MEDS: LEVOTHYROXINE 88 MCG TAB PO SCH ×3 (05:38→09:49)
[2017-06-04] MEDS: ACYCLOVIR 400 MG TAB PO SCH ×2 (09:48→20:59)
--- NOTE | 2017-06-04 11:14 | SOAPPROG ---
SOAP Progress Note Assessment/Plan: Assessment: Chest wall cellulitis stable - Continue Vanc and Zosyn. I changed the packing today Indurated above the port site. Less induration Superior and right of incision. Erythema still intense by incision but less so at edges of marking If no major improvement tomorrow, will consider chest ct Plan: 06/02/17 17:13 06/03/17 14:09 06/04/17 11:13 Objective: Vital Signs Temp Pulse Resp BP Pulse Ox 36.4 C 95 17 120/78 93 06/04/17 10:40 06/04/17 10:40 06/04/17 10:40 06/04/17 10:40 06/04/17 10:40 Laboratory Results 06/04/17 04:19 06/04/17 04:19 06/03/17 06/04/17 06/05/17 05:59 05:59 05:59 Intake Total 2150 5358 Output Total 4200 Balance 2150 1189 ICD10 Worksheet Patient Problems: Problems Problem Status Onset Mediastinal mass Acute
--- NOTE | 2017-06-04 13:50 | PCMIDPN ---
Assessment/Plan: Assessment/Plan: 1. Right chest cellulitis with wound with new extension to left breast: - wound packed with wick this Am. no obvious pus noted at exit site - erythema extended as above. wbc elevated again today. - Last Neulasta dose was around 05/21/17 - currently on vanco, zosyn. vanco trough at 9.8 which is adequate - will add clinda. - if doesn't show improvement, agree with ct chest to further evaluate -care coordinated with RN -care coordinated with surgery - care coordinated with pharmacy - plan of care reviewed with patient. Meds vanco 1g q12- 06/02 zosyn 3.375gm q6- 06/02 Subjective: afebrile. had drenching sweats last night and felt aweful in the morning. actually feeling a little better now. no further sweats. pain stable at around a 4/10 which it has been all along per patient. wound packed with wick this AM by Surgery. redness extending outside of demarcated lines new since this morning. denies sob, abd pain or diarrhea. had normal bm yesterday. Objective: Vital Signs Temp Pulse Resp BP Pulse Ox 36.4 C 102 H 17 97/70 L 95 06/04/17 12:40 06/04/17 12:40 06/04/17 12:40 06/04/17 12:40 06/04/17 12:40 Laboratory Results 06/04/17 04:19 06/04/17 04:19 06/03/17 06/04/17 06/05/17 05:59 05:59 05:59 Intake Total 2150 5389 Output Total 4200 Balance 2150 1189 - Physical Exam General Appearance: alert, no apparent distress Respiratory: lungs clear Cardiac/Chest: tachycardia Extremities: No swelling Abdomen: normal bowel sounds, non-tender, soft, No distended Skin: erythema (erythema largely over right upper chest near wound and then extends down and superior to that. most of induration is around the wound. new erythema noted extending to left breast now without induration. ) - Time Spent With Patient Time Spent with Patient: greater than 35 minutes Time Spent with Patient: Greater than 35 minutes spent on this patients care, greater than 50% of time spent counseling, educating, and coordinating care regarding the above mentioned plan. ICD10 Worksheet Patient Problems: Problems Problem Status Onset Mediastinal mass Acute
--- NOTE | 2017-06-04 14:36 | SOAPPROG ---
SOAP Progress Note Assessment/Plan: Assessment: 1. Right chest cellulitis s/p removal of mediport-on vanc/zosyn with progressive erythema extending to left breast since this morning. 2. Increased hoarseness-over last 3-4 days. 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 3. Stage IIA Primary Mediastinal B cell lymphoma-D19 cycle 1 of R-EPOCH. Due for next cycle on Tuesday. Will be delaying in light of infection. Plan: 1. ID adding clinda. 2. Chest CT, discussed with Dr. Hdez. 3. Next chemo will be delayed. Subjective: Drenching sweats last night. Objective: Vital Signs Temp Pulse Resp BP Pulse Ox 36.4 C 102 H 17 97/70 L 95 06/04/17 12:40 06/04/17 12:40 06/04/17 12:40 06/04/17 12:40 06/04/17 12:40 Laboratory Results 06/04/17 04:19 06/04/17 04:19 06/03/17 06/04/17 06/05/17 05:59 05:59 05:59 Intake Total 2150 5389 Output Total 4200 Balance 2150 1189 Physical Exam - Physical Exam General Appearance: alert, no apparent distress EENT: other (voice is raspy) Neck: supple Respiratory: lungs clear Abdomen: non-tender, soft Extremities: No pedal edema ICD10 Worksheet Patient Problems: Problems Problem Status Onset Mediastinal mass Acute
[2017-06-04] MEDS: CLINDAMYCIN 600 MG/DEXTROSE 50 ML IV SCH ×2 (14:37→22:04)
[2017-06-04] MEDS ORDERED: IOPAMIDOL (ISOVUE-300) 100 ML BTL ONE (14:45)
[2017-06-04] MEDS ORDERED: PROTOCOL POTASSIUM 1 DOSE MISC PRN (14:51)
[2017-06-04] MEDS ORDERED: POTASSIUM CL 20 MEQ TAB PO ONE (14:52)
--- NOTE | 2017-06-04 14:52 | HOSPPROG ---
Hospitalist Progress Note Assessment/Plan: # Sepsis - secondary to port infection and chest cellulitis- tachycardia and leukocytosis at presentation Patient received aggressive fluid resuscitation overnight and empiric antibiotics - continue monitor cultures - continue IV fluids until patient's p.o. is adequate - continue empiric antibiotics # acute port-infection with associated cellulitis of the chest- progressing erythema today from the right to left-sided chest Wound repacked by Dr. Velazquez this a.m. - discuss with Oncology and Infectious Disease will obtain chest CT with contrast this afternoon to rule out abscess or mediastinal involvement - continue vancomycin, Zosyn, clindamycin # Acute Leukocytosis- 27-> 33 - blood cultures NGTD - continue empiric antibiotics above # Acute hypoxic resp failure - suspect 2/2 splinting with chest wound - oxygen saturations 96% on 2L CXR (personally reviewed and interpreted) no infiltrates or edema - work on weaning O2 today - IS # mediastinal diffuse B cell lymphoma - receiving chemotherapy- Oncology following # Pancytopenia - counts stable -continue to follow # proph - lovenox # diet - regular # disposition - > 2MN as pt remains acutely very ill requiring IV antibiotics and close monitoring I have discussed the case with ID and ONC - we will obtain chest CT to rule out abscess or mediastinal involvement Subjective: sweats all night Objective: Vital Signs Temp Pulse Resp BP Pulse Ox 36.4 C 102 H 17 97/70 L 95 06/04/17 12:40 06/04/17 12:40 06/04/17 12:40 06/04/17 12:40 06/04/17 12:40 Laboratory Results 06/04/17 04:19 06/04/17 04:19 06/03/17 06/04/17 06/05/17 05:59 05:59 05:59 Intake Total 2150 5389 Output Total 4200 Balance 2150 1189 - Physical Exam Constitutional: appears nourished Eyes: anicteric sclera Ears, Nose, Mouth, Throat: moist mucous membranes Cardiovascular: regular rate and rhythym Respiratory: no respiratory distress Gastrointestinal: normoactive bowel sounds Genitourinary: no bladder fullness Skin: other (progressive erythema of the chest now extenging across left breast) Musculoskeletal: No asymmetric calves Neurologic: AAOx3 Psychiatric: interacting appropriately, not anxious Lymph, Heme, Immunologic: no cervical LAD ICD10 Worksheet Patient Problems: Problems Problem Status Onset Mediastinal mass Acute
[2017-06-04] MEDS: VANCOMYCIN 1 GM in D5W 250 ML IV SCH (16:05)
[2017-06-04] MEDS ORDERED: POTASSIUM CL 10 MEQ TAB PO ONE (19:22)
[2017-06-04] MEDS: LORazepam 0.5 MG TAB PO PRN (22:04)
[2017-06-05] MEDS: PIPERACILLIN/TAZO 3.375 GM/DEX 50 ML IV SCH ×4 (00:25→17:44)
[2017-06-05] MEDS: VANCOMYCIN 1 GM in D5W 250 ML IV SCH ×2 (05:15→16:24)
[2017-06-05] MEDS: LEVOTHYROXINE 88 MCG TAB PO SCH (05:20)
[2017-06-05 05:29] LABS: PLATELET COUNT 355 10^3/uL (150-400)
[2017-06-05] MEDS: CLINDAMYCIN 600 MG/DEXTROSE 50 ML IV SCH ×3 (06:21→22:12)
--- NOTE | 2017-06-05 09:04 | SOAPPROG ---
SOAP Progress Note Assessment/Plan: Assessment: Chest wall cellulitis MUCH IMPROVED!!!! Antibiotics per ID I will change the packing tomorrow Less indurated above the port site. Erythema that had spread across chest is less pronounced. Less induration of both breasts Plan: 06/02/17 17:13 06/03/17 14:09 06/04/17 11:13 06/05/17 09:03 Objective: Vital Signs Temp Pulse Resp BP Pulse Ox 36.4 C 90 16 113/77 94 06/05/17 07:43 06/05/17 07:43 06/05/17 07:43 06/05/17 07:43 06/05/17 07:43 Laboratory Results 06/05/17 05:10 06/05/17 05:20 06/04/17 06/05/17 06/06/17 05:59 05:59 05:59 Intake Total 5389 1400 Output Total 4200 6000 Balance 1189 -4600 ICD10 Worksheet Patient Problems: Problems Problem Status Onset Mediastinal mass Acute
--- NOTE | 2017-06-05 10:05 | ASMTCMCOM ---
CM Note CM Note Notes: 06/05/2017 Case Management Note Case Management faxed referral and relevant notes to [facility]. Requested [facility] provide approximate weekly costs to pt. Case Management d/c poc: court registry officer for wound care and possible infusion services for IV abx. Case Management to follow. Date Signed: 06/05/2017 10:05 AM Electronically Signed By:Shital Singletary RN
[2017-06-05] MEDS: ACYCLOVIR 400 MG TAB PO SCH ×2 (10:32→22:12)
[2017-06-05] MEDS ORDERED: POTASSIUM CL 10 MEQ TAB PO ONE ×2 (11:00→22:20)
--- NOTE | 2017-06-05 13:17 | PCMIDPN ---
Assessment/Plan: Assessment/Plan: 1. Right chest cellulitis with wound with new extension to left breast: - wound packed with wick. - ERythema with marked improvement. - WBc improved today as well. - CT chest wihtout obvious abscess - Last Neulasta dose was around 05/21/17 - vanco trough at 9.8 which is adequate - on Vanco, Zosyn, clinda. - continue for now as is. IF continues to improve, plan to narrow down coverage -care coordinated with RN - plan of care reviewed with patient and . Meds vanco 1g q12- 06/02 zosyn 3.375gm q6- 06/02 clinda 600mg q8- 06/04/17 Subjective: afebrile. no night sweats last night. feels better today. redness markely improved. denies sob. no abd pain or diarrhea. Objective: Vital Signs Temp Pulse Resp BP Pulse Ox 36.6 C 103 H 16 113/79 95 06/05/17 11:27 06/05/17 11:27 06/05/17 11:27 06/05/17 11:27 06/05/17 11:27 Laboratory Results 06/05/17 05:10 06/05/17 05:20 06/04/17 06/05/17 06/06/17 05:59 05:59 05:59 Intake Total 5389 1400 Output Total 4200 6000 Balance 1189 -4600 - Physical Exam General Appearance: alert, no apparent distress Respiratory: lungs clear Cardiac/Chest: regular rate, rhythm Extremities: No swelling Abdomen: normal bowel sounds, non-tender, soft, No distended Skin: erythema (right chest: erythema markedly iimproved and retracted from demarcated lines. now more concentrated around wound site. indurated around there as well. mildly tender. ) ICD10 Worksheet Patient Problems: Problems Problem Status Onset Mediastinal mass Acute
--- NOTE | 2017-06-05 14:38 | HOSPPROG ---
Hospitalist Progress Note Assessment/Plan: # Sepsis - secondary to port infection and chest cellulitis- tachycardia and leukocytosis at presentation- now improving - continue monitor cultures - dc IV fluids as p.o. is adequate - continue empiric antibiotics # acute port-infection with associated cellulitis of the chest- markedly improved erythema today CT chest (personally reviewed and interpreted) no abscess or deeper infection - continue vancomycin, Zosyn, clindamycin # Acute Leukocytosis- 33 -> 19 blood cultures NGTD - continue empiric antibiotics above # Acute hypoxic resp failure - suspect 2/2 splinting with chest wound - oxygen saturations 96% on RA CXR (personally reviewed and interpreted) no infiltrates or edema - continue ambulation/IS # mediastinal diffuse B cell lymphoma - receiving chemotherapy- Oncology following CT shows improvement of mediastinal involvement # Pancytopenia - counts stable -continue to follow # proph - Lovenox # diet - regular # disposition - > 2MN as pt remains acutely very ill requiring IV antibiotics and close monitoring I have discussed the case with ID and ONC - we will obtain chest CT to rule out abscess or mediastinal involvement Subjective: feeling much better Objective: Vital Signs Temp Pulse Resp BP Pulse Ox 36.6 C 103 H 16 113/79 95 06/05/17 11:27 06/05/17 11:27 06/05/17 11:27 06/05/17 11:27 06/05/17 11:27 Laboratory Results 06/05/17 05:10 06/05/17 05:20 06/04/17 06/05/17 06/06/17 05:59 05:59 05:59 Intake Total 5389 1400 Output Total 4200 6000 Balance 1189 -4600 - Physical Exam Constitutional: no apparent distress Eyes: anicteric sclera Ears, Nose, Mouth, Throat: moist mucous membranes Cardiovascular: regular rate and rhythym Respiratory: no respiratory distress Gastrointestinal: normoactive bowel sounds Genitourinary: no bladder fullness Skin: warm, other (improved chest erythema) Musculoskeletal: No asymmetric calves Neurologic: AAOx3 Psychiatric: interacting appropriately Lymph, Heme, Immunologic: no cervical LAD ICD10 Worksheet Patient Problems: Problems Problem Status Onset Mediastinal mass Acute
[2017-06-05] MEDS ORDERED: oxyCODONE IR 5 MG TAB PO PRN (14:51)
--- NOTE | 2017-06-05 15:55 | SOAPPROG ---
SOAP Progress Note Assessment/Plan: Assessment: 1. Right chest cellulitis s/p removal of mediport-on vanc/zosyn/Clinda-erythema improved today. Chest Ct without evidence of abcess. 3. 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 Due for next cycle on Tuesday. Will be delaying in light of infection. CT shows significant early reduction in the size of the mediastinal mass. Plan: 1. Continue antibiotics per ID. 2. Second cycle of chemo will be delayed. 3. Will need venous access again at some point. Subjective: feels better Objective: Vital Signs Temp Pulse Resp BP Pulse Ox 36.6 C 98 16 121/79 H 94 06/05/17 15:34 06/05/17 15:34 06/05/17 15:34 06/05/17 15:34 06/05/17 15:34 Laboratory Results 06/05/17 05:10 06/05/17 05:20 06/04/17 06/05/17 06/06/17 05:59 05:59 05:59 Intake Total 5389 1400 Output Total 4200 6000 Balance 1189 -4600 Physical Exam - Physical Exam General Appearance: alert, no apparent distress Neck: supple Respiratory: lungs clear Skin: other (erythema reduced compared to yesterday.) ICD10 Worksheet Patient Problems: Problems Problem Status Onset Mediastinal mass Acute
[2017-06-05] MEDS: LORazepam 0.5 MG TAB PO PRN (22:53)
[2017-06-06] MEDS: PIPERACILLIN/TAZO 3.375 GM/DEX 50 ML IV SCH ×2 (00:09→07:20)
[2017-06-06] MEDS: LEVOTHYROXINE 88 MCG TAB PO SCH (04:49)
[2017-06-06] MEDS: VANCOMYCIN 1 GM in D5W 250 ML IV SCH ×2 (04:49→17:06)
[2017-06-06 05:10] LABS: PLATELET COUNT 417 10^3/uL (150-400)
[2017-06-06] MEDS: CLINDAMYCIN 600 MG/DEXTROSE 50 ML IV SCH ×3 (06:13→22:16)
[2017-06-06] MEDS ORDERED: POTASSIUM CL 10 MEQ TAB PO ONE (08:42)
[2017-06-06] MEDS: ACYCLOVIR 400 MG TAB PO SCH ×2 (08:59→20:46)
--- NOTE | 2017-06-06 10:24 | SOAPPROG ---
SOAP Progress Note Assessment/Plan: Assessment: Chest wall cellulitis stable WBC improved Antibiotics per ID Base of wound now with healthy granulation tissue Packed with hydrofera blue transfer. Will change 2x per week Less indurated above the port site. Erythema stable Plan: 06/02/17 17:13 06/03/17 14:09 06/04/17 11:13 06/05/17 09:03 06/06/17 10:23 Objective: Vital Signs Temp Pulse Resp BP Pulse Ox 36.4 C 102 H 16 127/85 H 96 06/06/17 09:30 06/06/17 09:30 06/06/17 09:30 06/06/17 09:30 06/06/17 09:30 Laboratory Results 06/06/17 04:49 06/06/17 04:49 06/05/17 06/06/17 06/07/17 05:59 05:59 05:59 Intake Total 1400 3500 Output Total 6000 Balance -4600 3500 ICD10 Worksheet Patient Problems: Problems Problem Status Onset Mediastinal mass Acute
--- NOTE | 2017-06-06 11:18 | PCMIDPN ---
Assessment/Plan: # Line infection/chest wall cellulitis s/p port removal. This is my 1st exam but previously erythema extending to the left chest wall has now receded following initiation of clindamycin. Blood cx remain negative. Leukocytosis improving, AF --with clinical response to clindamycin unlikely Gram-negative jessa, DC Zosyn today --Likely place PICC line to continue chemo, patient would like to wait until tomorrow - *needs double lumen, ordered for tomorrow # Diarrhea, 3 loose stools, afebrile, improving white count and no abdominal pain. 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 Hdez and Dr. Hoyt Subjective: patient feels like chest wall improving 3 episodes diarrhea, one with urge incontinence, no abdominal pain +fatigue no rash or itching Objective: Vital Signs Temp Pulse Resp BP Pulse Ox 36.4 C 102 H 16 127/85 H 96 06/06/17 09:30 06/06/17 09:30 06/06/17 09:30 06/06/17 09:30 06/06/17 09:30 Laboratory Results 06/06/17 04:49 06/06/17 04:49 06/05/17 06/06/17 06/07/17 05:59 05:59 05:59 Intake Total 1400 3500 Output Total 6000 Balance -4600 3500 - Physical Exam General Appearance: alert, no apparent distress, thin, non-toxic EENT: No thrush Respiratory: normal breath sounds, No accessory muscle use Cardiac/Chest: tachycardia Abdomen: non-tender, soft Skin: erythema (jigna R upper chest wall with obvious recession from prior lines , no crepitis, +warmth) Neuro/Psych: alert, normal mood/affect, oriented x 3 - Line/s PIV Lines: other (R lateral forearm), No drainage, No erythema - Time Spent With Patient Time Spent with Patient: greater than 35 minutes Time Spent with Patient: Greater than 35 minutes spent on this patients care, greater than 50% of time spent counseling, educating, and coordinating care regarding the above mentioned plan. ICD10 Worksheet Patient Problems: Problems Problem Status Onset Mediastinal mass Acute
--- NOTE | 2017-06-06 13:06 | SOAPPROG ---
SOAP Progress Note Assessment/Plan: Assessment: 1. Right chest cellulitis s/p removal of mediport-on vanc/zosyn/Clinda- continued slow improvement. Chest Ct without evidence of abcess. 3. 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 Due for next cycle tomorrow. Will be delaying in light of infection. CT shows significant early reduction in the size of the mediastinal mass. 3. Diarrhea-likely secondary to antibiotics. Id evaluating. 4. IV access-upcoming chemotherapy requires 4 day continuous infusion. Will likely need PICC with next treatment. If still on IV antibiotics, double lumen PICC would be appropriate Plan: 1. Continue antibiotics per ID. 2. Second cycle of chemo will be delayed. 3. check C. diff is diarrhea continues 06/06/17 13:03 Subjective: having diarrhea. has some questions about a PICC Objective: Vital Signs Temp Pulse Resp BP Pulse Ox 36.6 C 102 H 16 127/85 H 96 06/06/17 12:45 06/06/17 09:30 06/06/17 09:30 06/06/17 09:30 06/06/17 09:30 Laboratory Results 06/06/17 04:49 06/06/17 04:49 06/05/17 06/06/17 06/07/17 05:59 05:59 05:59 Intake Total 1400 3500 Output Total 6000 Balance -4600 3500 Physical Exam - Physical Exam General Appearance: alert, no apparent distress Neck: supple Respiratory: lungs clear Abdomen: non-tender, soft Skin: other (still with significant erythema around port site, but not progressed since yesterday.) ICD10 Worksheet Patient Problems: Problems Problem Status Onset Mediastinal mass Acute
--- NOTE | 2017-06-06 15:34 | HOSPPROG ---
Hospitalist Progress Note Assessment/Plan: # acute port-infection with associated cellulitis of the chest- markedly improved erythema today CT chest (personally reviewed and interpreted) no abscess or deeper infection - continue vancomycin, Zosyn, clindamycin # Acute Leukocytosis- 33 -> 9 blood cultures NGTD - continue empiric antibiotics above # Acute hypoxic resp failure - suspect 2/2 splinting with chest wound - resolved oxygen saturations 96% on RA- no symptoms of pneumonia CT chest (personally reviewed and interpreted) LLL infiltrate - continue ambulation/IS - clinically monitor will not treat for pneumonia # mediastinal diffuse B cell lymphoma - receiving chemotherapy- Oncology following CT shows improvement of mediastinal involvement # Pancytopenia - counts stable -continue to follow # Sepsis - secondary to port infection and chest cellulitis- tachycardia and leukocytosis at presentation- resolved # proph - Lovenox # diet - regular # disposition - > 2MN as pt remains acutely very ill requiring IV antibiotics and close monitoring I have discussed the case with ID- patient does not clinically have pneumonia - will continue vanc/clindamycin Subjective: feels well Objective: Vital Signs Temp Pulse Resp BP Pulse Ox 36.6 C 79 16 136/90 H 95 06/06/17 15:18 06/06/17 15:18 06/06/17 15:18 06/06/17 15:18 06/06/17 15:18 Laboratory Results 06/06/17 04:49 06/06/17 04:49 06/05/17 06/06/17 06/07/17 05:59 05:59 05:59 Intake Total 1400 3500 300 Output Total 6000 Balance -4600 3500 300 - Physical Exam Constitutional: no apparent distress Eyes: anicteric sclera Ears, Nose, Mouth, Throat: moist mucous membranes Cardiovascular: regular rate and rhythym Respiratory: no respiratory distress Gastrointestinal: normoactive bowel sounds Genitourinary: no bladder fullness Skin: warm, other (erythema) Musculoskeletal: No asymmetric calves Neurologic: AAOx3 Psychiatric: interacting appropriately Lymph, Heme, Immunologic: no cervical LAD ICD10 Worksheet Patient Problems: Problems Problem Status Onset Mediastinal mass Acute
[2017-06-06] MEDS ORDERED: ALTEPLASE 2 MG VIAL IVP PRN (16:16)
[2017-06-06] MEDS: LORazepam 0.5 MG TAB PO PRN (20:46)
[2017-06-07] MEDS ORDERED: POTASSIUM CL 10 MEQ TAB PO ONE ×3 (01:16→11:00)
[2017-06-07] MEDS: LEVOTHYROXINE 88 MCG TAB PO SCH (05:41)
[2017-06-07] MEDS: VANCOMYCIN 1 GM in D5W 250 ML IV SCH (05:41)
[2017-06-07] MEDS: CLINDAMYCIN 600 MG/DEXTROSE 50 ML IV SCH ×2 (07:00→17:23)
[2017-06-07] MEDS: ACYCLOVIR 400 MG TAB PO SCH (10:50)
--- NOTE | 2017-06-07 10:59 | PCMIDPN ---
Assessment/Plan: Assessment/Plan: 1. Right chest cellulitis with wound with new extension to left breast: - wound packed with wick. - ERythema with marked improvement. continues to improve. Still with fair amount of induration. - WBc improving. recheck today. - CT chest wihtout obvious abscess - vanco trough at 9.8 - on Vanco, clinda. - Will d/c vanco and start dapto for easier option to do in the OP. check stat cpk/lft prior to dose and will give first dose here today. -will fill out interagency. -care coordinated with hospitalist team. - plan of care reviewed with patient -care coordinated with case management. Meds vanco 1g q12- 06/02 clinda 600mg q8- 06/04/17 s/p zosyn 3.375gm q6- 06/02-06/06/17 Subjective: afebrile. feeling better. pain about the same. less redness. no new extensions. denies sob. having loose stools. had about 6 yesterday. 2 so far today. denies abd pain. Objective: Vital Signs Temp Pulse Resp BP Pulse Ox 36.3 C 92 16 129/86 H 96 06/07/17 08:00 06/07/17 08:00 06/07/17 08:00 06/07/17 08:00 06/07/17 08:00 Microbiology 06/06/17 16:50 Gastrointestinal Tract Panel (PCR) - Final Stool No Organism Detected Laboratory Results 06/06/17 04:49 06/07/17 04:16 06/06/17 06/07/17 06/08/17 05:59 05:59 05:59 Intake Total 3500 1550 Balance 3500 1550 - Physical Exam General Appearance: alert, no apparent distress Respiratory: lungs clear Cardiac/Chest: regular rate, rhythm Extremities: No swelling Abdomen: normal bowel sounds, non-tender, soft, No distended Skin: erythema (right chest: erythema over right upper chest now mostly concentrated around wound. wound with hydrafera blue. indurated around wound but starting to show some improvement. warmth appreciated. ) - Time Spent With Patient Time Spent with Patient: greater than 35 minutes Time Spent with Patient: Greater than 35 minutes spent on this patients care, greater than 50% of time spent counseling, educating, and coordinating care regarding the above mentioned plan. ICD10 Worksheet Patient Problems: Problems Problem Status Onset Mediastinal mass Acute
--- NOTE | 2017-06-07 11:02 | PDIAF ---
- Diagnosis Diagnosis: right chest cellulitis Code Status: Full Code - Medication Management Discharge Medications: Medications to Continue on Transfer Levothyroxine [Synthroid 88 mcg (*)] 88 mcg PO DAILY06 #0 05/05/17 [Last Taken 06/02/17] Acyclovir [Zovirax 400 mg (*)] 400 mg PO BID 05/27/17 [Last Taken 06/02/17] Allopurinol [Allopurinol 300 MG (RX)] 300 mg PO HS 05/27/17 [Last Taken 06/01/17 ] LORazepam [Ativan (*)] 0.5 mg PO DAILY PRN 05/27/17 [Last Taken Unknown] Lidocaine/Prilocaine [Emla Cream] 1 sahmika TP AD 05/27/17 [Last Taken Unknown] Ondansetron Odt [Zofran Odt 4 mg (*)] 8 mg PO DAILY PRN 05/27/17 [Last Taken ] Acetaminophen [Tylenol 325mg (*)] 325 - 650 mg PO Q6HRS PRN tab 05/29/17 [Last Taken Unknown] Cephalexin [Keflex (*)] 500 mg PO Q6HRS #48 cap 05/29/17 [Last Taken 06/02/17] Doxycycline Hyclate [Vibramycin 100 MG (*)] 100 mg PO BID #24 capsule 05/29/17 [ Last Taken 06/02/17] traMADol [Ultram 50 mg (*)] 25 - 50 mg PO Q6 PRN 06/02/17 [Last Taken 06/02/17 25mg] Mobile Application Developer Antibiotics: Daptomycin 220mg IV daily Mobile Application Developer Antibiotic Stop Date: 06/16/17 Discharge Medications: Refer to the Discharge Home Medication list for PRN reason. PICC Care - Routine: Yes - Labs/Radiology CBC w/diff Date: 06/13/17 CMP Date: 06/13/17 CPK Date: 06/13/17 Call or Fax Lab and Imaging Results to: fax to Dr. Pan - [phone] - Follow Up Care Current Providers and Referrals: Patient,NotPresent [Primary Care Provider] - Danielle Pan MD [Medical Doctor] - 06/15/17 10:00 am (f/u with Dr. Pan ( Infectious diseases) on 1/10/18 at 10am. Check in time is at 9:45am. )
[2017-06-07] MEDS ORDERED: DAPTOMYCIN IV SCH (11:30)
[2017-06-07] MEDS ORDERED: NS IV SCH (11:30)
[2017-06-07 11:50] LABS: PLATELET COUNT 588 10^3/uL (150-400)
[2017-06-07 12:01] LABS: CREATINE KINASE 34 IU/L (0-156)
[2017-06-07 12:26] VITALS: BP 116/75
--- NOTE | 2017-06-07 13:20 | SOAPPROG ---
SOAP Progress Note Assessment/Plan: Assessment: Chest wall cellulitis improved Antibiotics per ID Less indurated above the port site. Erythema decreased Plan: 06/02/17 17:13 06/03/17 14:09 06/04/17 11:13 06/05/17 09:03 06/06/17 10:23 06/07/17 13:19 Objective: Vital Signs Temp Pulse Resp BP Pulse Ox 36.5 C 85 18 116/75 98 06/07/17 12:12 06/07/17 12:12 06/07/17 12:12 06/07/17 12:12 06/07/17 12:12 Microbiology 06/06/17 16:50 Gastrointestinal Tract Panel (PCR) - Final Stool No Organism Detected Laboratory Results 06/07/17 11:30 06/07/17 04:16 06/06/17 06/07/17 06/08/17 05:59 05:59 05:59 Intake Total 3500 1550 750 Balance 3500 1550 750 ICD10 Worksheet Patient Problems: Problems Problem Status Onset Mediastinal mass Acute
--- NOTE | 2017-06-07 13:35 | ASMTCMCOM ---
CM Note CM Note Notes: Pt will DC with IV ABX and new dbl lumen PICC today. [facility] will provide IV ABX and PICC care supplies. Pt has a deductible over $6,000. which may be met at this admission but otherwise pt will pay the cost. [facility] will provide RN. Final paperwork and PICC line report witll be faxed to [facility]. Date Signed: 06/07/2017 01:35 PM Electronically Signed By:Jenny Lucas LCSW
--- NOTE | 2017-06-07 14:12 | PDIAF ---
- Diagnosis Diagnosis: right chest cellulitis Code Status: Full Code - Medication Management Discharge Medications: Medications to Continue on Transfer Levothyroxine [Synthroid 88 mcg (*)] 88 mcg PO DAILY06 #0 05/05/17 [Last Taken 06/02/17] Acyclovir [Zovirax 400 mg (*)] 400 mg PO BID 05/27/17 [Last Taken 06/02/17] Allopurinol [Allopurinol 300 MG (RX)] 300 mg PO HS 05/27/17 [Last Taken 06/01/17 ] LORazepam [Ativan (*)] 0.5 mg PO DAILY PRN 05/27/17 [Last Taken Unknown] Lidocaine/Prilocaine [Emla Cream] 1 shamika TP AD 05/27/17 [Last Taken Unknown] Ondansetron Odt [Zofran Odt 4 mg (*)] 8 mg PO DAILY PRN 05/27/17 [Last Taken ] Acetaminophen [Tylenol 325mg (*)] 325 - 650 mg PO Q6HRS PRN tab 05/29/17 [Last Taken Unknown] Cephalexin [Keflex (*)] 500 mg PO Q6HRS #48 cap 05/29/17 [Last Taken 06/02/17] Doxycycline Hyclate [Vibramycin 100 MG (*)] 100 mg PO BID #24 capsule 05/29/17 [ Last Taken 06/02/17] traMADol [Ultram 50 mg (*)] 25 - 50 mg PO Q6 PRN 06/02/17 [Last Taken 06/02/17 25mg] DAPTOmycin [Cubicin] 220 mg IV DAILY ml 06/07/17 [Last Taken Unknown] Hydraulic Assembler Antibiotics: Daptomycin 220mg IV daily Hydraulic Assembler Antibiotic Stop Date: 06/16/17 Discharge Medications: Refer to the Discharge Home Medication list for PRN reason. PICC Care - Routine: Yes - Orders Services needed: Home Care, Registered Nurse Home Care Face to Face: I certify that this patient was under my care and that I had the required [id number] encounter meeting the encounter requirements on the discharge day. My findings support the fact that the patient is homebound as defined in Home Care Face to Face Continued: CMS Chapter 7 Medicare Benefits Manual 30.1.1 , The condition of the patient is such that there exists a normal inability to leave home and consequently, leaving home would require a considerable and taxing effort. Diet Recommendation: no restrictions on diet Diet Texture: Regular Texture Diet Wound Care Instructions: Change port wound with hydrofera blue (hydrofera blue transfer preferred) and allevyn 2-3x per week - Labs/Radiology CBC w/diff Date: 06/13/17 CMP Date: 06/13/17 CPK Date: 06/13/17 Call or Fax Lab and Imaging Results to: fax to Dr. Pan - [phone] - Follow Up Care Current Providers and Referrals: Rachel Martinez MD [Medical Doctor] - (call to make an appt 1 to 2 weeks) Patient,NotPresent [Primary Care Provider] - Danielle Pan MD [Medical Doctor] - 06/15/17 10:00 am (f/u with Dr. Pan ( Infectious diseases) on 06/15/17 at 10am. Check in time is at 9:45am. )
--- NOTE | 2017-06-07 16:05 | ASMTCMCOM ---
CM Note CM Note Notes: Orders sent to [facility] via [employer], alerted Franny at [facility]. Also alerted Maria Isabel at [facility] of discharge. Patient will discharge home today with [facility] and [facility] RN. Case Management available for any further needs. Date Signed: 06/07/2017 04:04 PM Electronically Signed By:Sveta Yañez RN
[2017-06-07 18:11] VITALS: PULSE 75; RESP 16; TEMP 98.1; O2SAT 96
--- NOTE | 2017-06-07 19:00 | GDS ---
[f rep st] DISCHARGE SUMMARY DISCHARGE DIAGNOSES: 1. Infected chemotherapy poor. 2. Chest cellulitis. 3. Sepsis, resolved. 4. Mediastinal diffuse B-cell lymphoma. 5. Pancytopenia. 6. Antibiotic-associated diarrhea. HISTORY OF PRESENT ILLNESS: A 56-year-old female with a chemotherapy port for treatment of her lymph antwon, who presents with erythema around the port site. For details of the patient's initial presentat ion, please see the history and physical dated 06/02/2017. CONSULTATIVE SERVICES: 1. Infectious Disease. 2. General Surgery, Dr. Martinez. 3. Oncology. PROCEDURES: On this patient, patient underwent port removal. Prior to this hospital stay on 017, patient had a CT of the chest, confirmed no deep mediastinal or chest wall abscess. HOSPITAL COURSE BY ISSUE: 1. Acute port infection/chest wall cellulitis. Patient was placed on broad-spectrum IV antibiotics. It took several days until she began improving on IV clindamycin. On the day of disposition, her w ound is improving, is continuing to be packed every 2 days, and chest wall cellulitis has receded roshan surably. She is being discharged on IV daptomycin and will follow with Dr. Martinez, as well as Dr. Pan in the outpatient setting. We have arranged home health for IV antibiotics and wound care post disp osition. 2. Sepsis secondary to port infection/chest wall cellulitis. Patient's sepsis did resolve in the fi rst 48 hours of her hospital stay. Vital signs and laboratories are stable on the day disposition. MEDICATIONS AT THE TIME OF DISPOSITION: Please reference the med rec printed on 06/07/2017. FOLLOWUP APPOINTMENTS: With Dr. Martinez and Dr. Pan. PENDING STUDIES: At the time of this dictation include blood cultures from 06/02/2017, which remain no growth to date. I spent greater than 30 minutes in the planning and coordination of this discharge. /[id number]/MODL
== END 2017-06-07 18:20 | disposition home health service (06) | DRG 314 ==
LOC: OBSVTOIN 14:58 → F1N 14:58
PROVIDERS: ADMIT Internal Medicine; ATTEND Internal Medicine
PROC: 02HV33Z Insertion of Infusion Device into Superior Vena Cava, Percutaneous Approach (ICD-10-PCS; principal; 2017-06-07)
DX: T80.212A Local infection due to central venous catheter, initial encounter (principal); A41.9 Sepsis, unspecified organism; L03.313 Cellulitis of chest wall; C85.20 Mediastinal (thymic) large B-cell lymphoma, unspecified site; D61.818 Other pancytopenia; K52.1 Toxic gastroenteritis and colitis; T36.91XA Poisoning by unspecified systemic antibiotic, accidental (unintentional), initial encounter; E03.9 Hypothyroidism, unspecified
CPT/HCPCS: C1751; C1769; J0878; J2543; J3370; Q9967

== ENCOUNTER → 2017-11-18 | Outpatient (CLI) | payer OTHER | LOC: FIMAGING 10:02 | PROVIDERS: ATTEND Internal Medicine | DX: Z12.31 Encounter for screening mammogram for malignant neoplasm of breast (principal); Z13.820 Encounter for screening for osteoporosis; M81.0 Age-related osteoporosis without current pathological fracture ==

== ENCOUNTER → 2018-11-24 | Outpatient (CLI) | payer OTHER | LOC: FIMAGING 08:23 ==